=== PATIENT | female | born 1960 | race Hispanic/Latino ===

== ENCOUNTER 2023-12-18 12:23 | Inpatient (IN) | payer OTHER ==
[2023-12-14 15:21] LABS: BASOPHILS % 0.4 % (0.0-1.0); EOSINOPHILS # (AUTO) 0.2 (0.0-0.4); EOSINOPHILS % 4.5 % (0.0-6.0); HEMATOCRIT 32.3 % (34.2-44.1); HEMOGLOBIN 10.7 g/dL (12.0-16.0); LYMPHOCYTES # (AUTO) 1.2 (1.0-3.2); LYMPHOCYTES % 25.5 % (18.0-39.1); MEAN CORPUSCULAR HEMOGLOBIN 28.5 pg (28-32); MEAN CORPUSCULAR HGB CONC 33.1 g/dL (31-35); MEAN CORPUSCULAR VOLUME 85.9 fL (81-99); MONOCYTES # (AUTO) 0.4 (0.2-0.8); NEUTROPHILS # (AUTO) 2.8 (2.1-6.9); NEUTROPHILS % 61.2 % (38.7-80.0); PLATELET COUNT 240 x10e3/uL (140-360); RED BLOOD COUNT 3.76 x10e6/uL (3.6-5.1); RED CELL DISTRIBUTION WIDTH 13.6 % (11.7-14.4); WHITE BLOOD COUNT 4.63 x10e3/uL (4.8-10.8)
[2023-12-14 15:33] LABS: ANION GAP 14.3 mmol/L (8-16); CALCIUM 9.2 mg/dL (8.4-10.2); CREATININE, SERUM 0.8 mg/dL (0.57-1.11); POTASSIUM 4.3 mmol/L (3.5-5.1)
[~2023-12-18] VITALS: Ht 152.4 cm; Wt 76.2 kg
[~2023-12-18 12:23] MED LIST: BENICAR5 MG PO; CRESTOR10 MG PO; FENOFIBRATE145 MG PO; IBUPROFEN600 MG PO; OMEPRAZOLE40 MG PO; OZEMPIC0.25 MG/02 SC/PO; PROVENTIL HFA6.7 GM INH; VALIUM2 MG PO
[2023-12-18] MEDS ORDERED: PHENYLEPHRINE HCL 1% 10 MG/ML VIAL ONE (12:51)
[2023-12-18] MEDS ORDERED: ONDANSETRON HCL INJ 2MG/ML 2ML 2 MG/ML VIAL ONE (12:51)
[2023-12-18] MEDS ORDERED: ACETAMINOPHEN 1000 MG/100 ML IV ONE (12:51)
[2023-12-18] MEDS ORDERED: SEVOFLURANE INHAL SOLN 250 ML PEN BTL ONE (12:51)
[2023-12-18] MEDS ORDERED: PROPOFOL IV EMULSION 10 MG/ML 20 ML VIAL ONE (12:51)
[2023-12-18] MEDS ORDERED: EPHEDRINE SULFATE INJ 50 MG/ML VIAL ONE (12:51)
[2023-12-18] MEDS ORDERED: LIDOCAINE HCL 2% LOCAL INJ 5 ML SDV VIAL INJ ONE (12:51)
[2023-12-18] MEDS ORDERED: DEXAMETHASONE SOD PHOS INJ 4 MG/ML SDV ONE (12:51)
[2023-12-18] MEDS ORDERED: TYLENOL325 MG PO (13:02)
[2023-12-18] MEDS: LEVOFLOXACIN 500MG/D5W 100ML 100 ML IV ONE (13:11)
[2023-12-18] MEDS: LACTATED RINGER'S 1,000 ML ONE (13:11)
[2023-12-18] MEDS: CLINDAMYCIN 600MG / 50ML 50 ML IV ONE (13:12)
[2023-12-18] MEDS ORDERED: MIDAZOLAM HCL 2 MG/2 ML VIAL ONE (13:20)
[2023-12-18] MEDS ORDERED: FENTANYL CITRATE/PF 100MCG/2 ML INJ ONE (13:20)
[2023-12-18] MEDS ORDERED: BUPIVACAINE HCL 0.5% INJ 30 ML VIAL INJ ONE (14:23)
[2023-12-18] MEDS ORDERED: LIDOCAINE 2% /EPINEPHRINE 20 ML SDV INJ ONE (14:23)
[2023-12-18] MEDS ORDERED: IOPAMIDOL 610MG/1ML 300 MG/ML VIAL IV ONE (14:23)
[2023-12-18] MEDS ORDERED: GENTAMICIN SULFATE 40 MG/ML 2 ML VIAL ONE (14:40)
[2023-12-18] MEDS ORDERED: BACITRACIN ZINC 15 GM OINT ONE (16:14)
[2023-12-18] MEDS: FENTANYL CITRATE/PF 100MCG/2 ML INJ ONE (16:33)
[2023-12-18 16:55] LABS: BASOPHILS % 0.5 % (0.0-1.0); EOSINOPHILS # (AUTO) 0.2 (0.0-0.4); EOSINOPHILS % 3.2 % (0.0-6.0); HEMATOCRIT 30.1 % (34.2-44.1); HEMOGLOBIN 10.1 g/dL (12.0-16.0); LYMPHOCYTES # (AUTO) 1.6 (1.0-3.2); LYMPHOCYTES % 23.9 % (18.0-39.1); MEAN CORPUSCULAR HEMOGLOBIN 28.5 pg (28-32); MEAN CORPUSCULAR HGB CONC 33.6 g/dL (31-35); MONOCYTES # (AUTO) 0.3 (0.2-0.8); MONOCYTES % 4.6 % (4.4-11.3); NEUTROPHILS # (AUTO) 4.4 (2.1-6.9); NEUTROPHILS % 67.3 % (38.7-80.0); PLATELET COUNT 201 x10e3/uL (140-360); RED BLOOD COUNT 3.54 x10e6/uL (3.6-5.1); RED CELL DISTRIBUTION WIDTH 13.6 % (11.7-14.4); WHITE BLOOD COUNT 6.52 x10e3/uL (4.8-10.8)
[2023-12-18] MEDS: PHENAZOPYRIDINE HCL 100 MG TAB PO PRN (17:04)
[2023-12-18 17:10] LABS: ANION GAP 13.7 mmol/L (8-16); CALCIUM 8.6 mg/dL (8.4-10.2); CREATININE, SERUM 0.73 mg/dL (0.57-1.11); POTASSIUM 3.7 mmol/L (3.5-5.1)
[2023-12-18] MEDS: HYDROMORPHONE 1MG/1ML INJ ONE (17:22)
[2023-12-18 17:59] VITALS: BP 155/87; PULSE 68; RESP 18; TEMP 97.4; O2SAT 100
[2023-12-18] MEDS: ACETAMINOPHEN/CODEINE 300MG - 30MG TAB PO PRN (20:35)
[2023-12-18] MEDS: SENNA-S TABLET PO SCH (20:35)
[2023-12-18] MEDS ORDERED: FLOMAX0.4 MG PO (20:42)
[2023-12-18] MEDS ORDERED: GABAPENTIN300 MG PO (20:42)
[2023-12-18] MEDS ORDERED: METHOCARBAMOL500 MG PO (20:42)
[2023-12-18 21:02] VITALS: BP 139/79; PULSE 65; RESP 18; TEMP 97.5; O2SAT 100
[2023-12-18 21:57] VITALS: BP 139/79; PULSE 65; RESP 18; TEMP 97.5; O2SAT 100
[2023-12-18] MEDS: SODIUM CHLORIDE 0.9% 1000ML 1,000 ML IV SCH (22:16)
[2023-12-18] MEDS: PANTOPRAZOLE SODIUM 20 MG TABLET.DR PO SCH (22:17)
[2023-12-18] MEDS: Morphine 2mg Syringe 2 MG/ML SYR IV PRN (22:19)
[2023-12-18 23:49] VITALS: BP 143/84; PULSE 68; RESP 18; TEMP 97.5; O2SAT 98
[2023-12-19] VITALS (11 sets, daily range): BP systolic 132–176; BP diastolic 62–73; PULSE 55–87; RESP 16–19; TEMP 97.5–97.7; O2SAT 97–100
[2023-12-19] MEDS ORDERED: MELATONIN 3 MG TAB PO PRN
[2023-12-19] MEDS ORDERED: CHLORASEPTIC SPRAY 177 ML BTL MM PRN
[2023-12-19] MEDS ORDERED: DEXTROSE 50% SYRINGE 50 ML IV PRN
[2023-12-19] MEDS ORDERED: GABAPENTIN 300 MG CAP PO PRN
[2023-12-19] MEDS ORDERED: HYDRALAZINE HCL 20 MG/ML VIAL IV PRN
[2023-12-19] MEDS ORDERED: ACETAMINOPHEN 325 MG TAB PO PRN
[2023-12-19] MEDS ORDERED: GUAIFENESIN/DEXTROMETHORPHAN LIQD 5 ML UDC PO PRN
[2023-12-19] MEDS: ONDANSETRON HCL INJ 2MG/ML 2ML 2 MG/ML VIAL IV PRN (02:07)
[2023-12-19 05:31] LABS: BASOPHILS % 0.1 % (0.0-1.0); HEMATOCRIT 31.1 % (34.2-44.1); HEMOGLOBIN 10.3 g/dL (12.0-16.0); LYMPHOCYTES # (AUTO) 0.5 (1.0-3.2); LYMPHOCYTES % 5.2 % (18.0-39.1); MEAN CORPUSCULAR HEMOGLOBIN 27.8 pg (28-32); MEAN CORPUSCULAR HGB CONC 33.1 g/dL (31-35); MEAN CORPUSCULAR VOLUME 83.8 fL (81-99); MONOCYTES # (AUTO) 0.2 (0.2-0.8); MONOCYTES % 2.6 % (4.4-11.3); NEUTROPHILS # (AUTO) 8.4 (2.1-6.9); NEUTROPHILS % 91.9 % (38.7-80.0); PLATELET COUNT 210 x10e3/uL (140-360); RED BLOOD COUNT 3.71 x10e6/uL (3.6-5.1); RED CELL DISTRIBUTION WIDTH 13.3 % (11.7-14.4)
[2023-12-19] MEDS: ACETAMINOPHEN 1000 MG/100 ML IV PRN (05:53)
[2023-12-19 06:05] LABS: CALCIUM 8.9 mg/dL (8.4-10.2); CREATININE, SERUM 0.7 mg/dL (0.57-1.11)
[2023-12-19] MEDS: GENTAMICIN 80MG/NS 100 ML 200 ML IV ONE (06:15)
[2023-12-19] MEDS: INSULIN REGULAR, HUMAN 100 UNIT/1 ML SQ SCH (07:30)
[2023-12-19] MEDS: FENOFIBRATE 145 MG TAB PO SCH (08:42)
[2023-12-19] MEDS: MULTIVITAMINS/MINERALS TAB PO SCH (08:42)
[2023-12-19] MEDS: DIAZEPAM 2 MG TAB PO PRN (08:42)
[2023-12-19] MEDS: SIMVASTATIN 40 MG TAB PO SCH (08:43)
[2023-12-19] MEDS: LEVOFLOXACIN 500MG/D5W 100ML 100 ML IV SCH (12:14)
[2023-12-19] MEDS: DIPHENHYDRAMINE HCL 25 MG CAP PO PRN (23:01)
[2023-12-20] VITALS (7 sets, daily range): BP systolic 139–171; BP diastolic 66–76; PULSE 52–67; RESP 17–21; TEMP 97.8–98.1; O2SAT 95–100
[2023-12-20 05:28] LABS: BASOPHILS % 0.1 % (0.0-1.0); EOSINOPHILS % 0.1 % (0.0-6.0); HEMATOCRIT 29.2 % (34.2-44.1); HEMOGLOBIN 9.2 g/dL (12.0-16.0); LYMPHOCYTES # (AUTO) 0.9 (1.0-3.2); LYMPHOCYTES % 12.1 % (18.0-39.1); MEAN CORPUSCULAR HEMOGLOBIN 27.3 pg (28-32); MEAN CORPUSCULAR HGB CONC 31.5 g/dL (31-35); MEAN CORPUSCULAR VOLUME 86.6 fL (81-99); MONOCYTES # (AUTO) 0.5 (0.2-0.8); MONOCYTES % 6.9 % (4.4-11.3); NEUTROPHILS % 80.4 % (38.7-80.0); PLATELET COUNT 217 x10e3/uL (140-360); RED BLOOD COUNT 3.37 x10e6/uL (3.6-5.1); RED CELL DISTRIBUTION WIDTH 14.1 % (11.7-14.4); WHITE BLOOD COUNT 7.52 x10e3/uL (4.8-10.8)
[2023-12-20 06:00] LABS: ANION GAP 10.8 mmol/L (8-16); CALCIUM 8.6 mg/dL (8.4-10.2); CREATININE, SERUM 0.69 mg/dL (0.57-1.11); POTASSIUM 3.8 mmol/L (3.5-5.1)
[2023-12-20] MEDS ORDERED: ONDANSETRON HCL 4 MG ORAL DISINTEGRATING TAB PO PRN (12:45)
[2023-12-20] MEDS ORDERED: LEVOFLOXACIN250 MG PO (15:38)
== END 2023-12-20 16:30 | disposition home or self-care (01) | DRG 748 ==
LOC: OR 12:23 → PACU V 15:02 → MED/SURG 18:26
PROVIDERS: ADMIT Internal Medicine Critical Care Medicine; ATTEND Internal Medicine Critical Care Medicine
PROC: 0TSD0ZZ Reposition Urethra, Open Approach (ICD-10-PCS; 2023-12-18)
PROC: BT141ZZ Fluoroscopy of Kidneys, Ureters and Bladder using Low Osmolar Contrast (ICD-10-PCS; 2023-12-18)
PROC: BT101ZZ Fluoroscopy of Bladder using Low Osmolar Contrast (ICD-10-PCS; 2023-12-18)
PROC: 0JUC0KZ Supplement of Pelvic Region Subcutaneous Tissue and Fascia with Nonautologous Tissue Substitute, Open Approach (ICD-10-PCS; principal; 2023-12-18 15:02)
DX: N81.10 Cystocele, unspecified (principal); R31.29 Other microscopic hematuria; N39.3 Stress incontinence (female) (male); N95.2 Postmenopausal atrophic vaginitis; R33.9 Retention of urine, unspecified; D63.8 Anemia in other chronic diseases classified elsewhere; E11.9 Type 2 diabetes mellitus without complications; Z79.85 Long-term (current) use of injectable non-insulin antidiabetic drugs; I10 Essential (primary) hypertension; E78.5 Hyperlipidemia, unspecified; K21.9 Gastro-esophageal reflux disease without esophagitis; K44.9 Diaphragmatic hernia without obstruction or gangrene; E66.9 Obesity, unspecified; Z68.32 Body mass index [BMI] 32.0-32.9, adult; Z87.440 Personal history of urinary (tract) infections; M19.91 Primary osteoarthritis, unspecified site; Z90.710 Acquired absence of both cervix and uterus
CPT/HCPCS: 36415; 74420; 80048; 82948; 83735; 85025; 87086; 93005; 94799; J1100; J1170; J1580; J1956; J2001; J2250; J2270; J2371; J2405; J7030

== ENCOUNTER → 2024-04-04 | Day surgery (SDC) | payer OTHER ==
[~2024-04-04] MED LIST changes: +CEFPODOXIME PR200 MG PO; +DIFLUCAN100 MG PO; +FAMOTIDINE 20 MG/2 ML VIAL IV ONE; +FENTANYL CITRATE/PF 100MCG/2 ML INJ ONE; +FLOMAX0.4 MG PO; +GABAPENTIN300 MG PO; +GLYCOPYRROLATE INJ 0.2 MG/ML VIAL ONE; +HYDROXYZINE HCL25 MG PO; +LEVOFLOXACIN250 MG PO; +LIDOCAINE HCL 2% LOCAL INJ 5 ML SDV VIAL INJ ONE; +METHOCARBAMOL500 MG PO; +METOCLOPRAMIDE HCL 10 MG/2ML VIAL ONE; +ONDANSETRON HCL INJ 2MG/ML 2ML 2 MG/ML VIAL ONE; +PROPOFOL IV EMULSION 10 MG/ML 20 ML VIAL ONE; +PROPOFOL IV EMULSION 10 MG/ML 50 ML VIAL IV ONE; +TYLENOL325 MG PO
[2024-04-04] MEDS: LACTATED RINGER'S 1,000 ML ONE (12:21)
[2024-04-04 15:15] VITALS: BP 141/82; PULSE 88; RESP 16; O2SAT 96
== END | disposition home or self-care (01) ==
LOC: OR 11:40
PROVIDERS: ATTEND Internal Medicine Gastroenterology
DX: D64.89 Other specified anemias (principal); Z86.010 Personal history of colon polyps; K31.7 Polyp of stomach and duodenum; K29.50 Unspecified chronic gastritis without bleeding; K21.9 Gastro-esophageal reflux disease without esophagitis; K20.90 Esophagitis, unspecified without bleeding; K44.9 Diaphragmatic hernia without obstruction or gangrene; K57.30 Diverticulosis of large intestine without perforation or abscess without bleeding; K59.09 Other constipation; K64.8 Other hemorrhoids; Z71.3 Dietary counseling and surveillance; E11.9 Type 2 diabetes mellitus without complications; I10 Essential (primary) hypertension; Z71.89 Other specified counseling; E78.5 Hyperlipidemia, unspecified; J45.909 Unspecified asthma, uncomplicated; E66.01 Morbid (severe) obesity due to excess calories; G89.29 Other chronic pain; F41.9 Anxiety disorder, unspecified; Z88.0 Allergy status to penicillin; Z01.810 Encounter for preprocedural cardiovascular examination; Z79.85 Long-term (current) use of injectable non-insulin antidiabetic drugs; Z79.84 Long term (current) use of oral hypoglycemic drugs; Z79.1 Long term (current) use of non-steroidal anti-inflammatories (NSAID); Z79.899 Other long term (current) drug therapy; Z68.32 Body mass index [BMI] 32.0-32.9, adult
CPT/HCPCS: 43239; 43251; 45378; 93005; J2001; J2405; J2470; J2704 ×2; J2765; J3010; J7121